=== PATIENT | female | born 1995 | race Caucasian/White ===

== ENCOUNTER 2019-09-07 13:48 | Emergency (ER) | payer OTHER ==
[~2019-09-07] VITALS: Ht 154.9 cm; Wt 129.3 kg
[2019-09-07] MEDS ORDERED: TESSALON PERLE100 MG PO (14:24)
[2019-09-07] MEDS ORDERED: AMOXICILLIN 50500 MG PO (14:24)
[2019-09-07 14:39] VITALS: BP 119/71
== END 2019-09-07 14:40 | disposition home or self-care (01) ==
LOC: M.ERS 13:48
DX: J06.9 Acute upper respiratory infection, unspecified (principal); Z90.49 Acquired absence of other specified parts of digestive tract

== ENCOUNTER 2019-09-24 13:59 | Emergency (ER) | payer OTHER ==
[~2019-09-24] VITALS: Ht 154.9 cm; Wt 127.0 kg
[~2019-09-24 13:59] MED LIST: AMOXICILLIN 50500 MG PO; TESSALON PERLE100 MG PO
[2019-09-24 14:41] LABS: URINE BILIRUBIN NEGATIVE (Negative); URINE BLOOD NEGATIVE (Negative); URINE CLARITY CLEAR; URINE COLOR YELLOW; URINE GLUCOSE-RANDOM NEGATIVE (Negative); URINE KETONES NEGATIVE (Negative); URINE LEUKOCYTES-REFLEX NEGATIVE (Negative); URINE NITRITE-REFLEX NEGATIVE (Negative); URINE PROTEIN NEGATIVE (Negative)
[2019-09-24 14:47] LABS: AMP/METHAMP Negative (Negative); BARBITURATES Negative (Negative); BENZODIAZEPINES Negative (Negative); COCAINE Negative (Negative); METHADONE Negative (Negative); OPIATES Negative (Negative); PCP Negative (Negative); THC Negative (Negative)
[2019-09-24] MEDS ORDERED: OMEPRAZOLE40 MG PO (15:05)
[2019-09-24] MEDS ORDERED: CARAFATE 1 GM TA1 GM PO (15:05)
[2019-09-24 15:07] LABS: HEMOGLOBIN 11.7 gm/dL (12.0-15.0); MCH 28.1 pg (26.0-34.0); MCHC 33.5 g/dL (28.0-37.0); MCV 83.9 fL (80.0-100.0); MPV 6.8 fl. (7.2-11.1); RBC 4.17 mil/uL (4.20-5.00); RDW-CV 14.6 % (10.5-14.5); WBC 8.1 thou/uL (4.0-11.0)
[2019-09-24 15:15] LABS: CALCIUM 8.7 mg/dL (8.5-10.1); CREATININE 0.8 mg/dL (0.6-1.3); POTASSIUM 3.7 mmol/L (3.5-5.1)
[2019-09-24 15:19] LABS: ALBUMIN 3.4 g/dL (3.4-5.0); TOTAL BILIRUBIN 0.2 mg/dL (<0.1-1.0); TOTAL PROTEIN 7.5 g/dL (6.4-8.2)
[2019-09-24 15:52] VITALS: BP 129/72
--- NOTE | 2019-09-25 12:11 | EKG ---
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: : 1995 Requested By: Indira Aguilera Order Number: [id number] MD: Matthew Rose Measurements Intervals [place] Rate: 84 P: 47 VA: 184 QRS: -12 QRSD: 112 T: 30 QT: 376 QTc: 445 Interpretive Statements Sinus rhythm Borderline intraventricular conduction delay Low voltage, precordial leads Baseline wander in lead(s) I,III,aVL No previous ECG available for comparison Electronically Signed On 09-25-2019 12:10:57 [employer] by Matthew Rose [email or web address] <ELECTRONICALLY SIGNED> By: Matthew Rose MD, [facility] 09/25/19 1210 1408 1408 Matthew Rose MD, [facility] /EPI
== END 2019-09-24 15:53 | disposition home or self-care (01) ==
LOC: M.ERS 13:59
PROVIDERS: Personal Emergency Response Attendant
DX: K21.9 Gastro-esophageal reflux disease without esophagitis (principal); R10.13 Epigastric pain; Z90.49 Acquired absence of other specified parts of digestive tract

== ENCOUNTER 2019-10-14 23:15 | Emergency (ER) | payer OTHER ==
[~2019-10-14] VITALS: Ht 154.9 cm; Wt 131.5 kg
[~2019-10-14 23:15] MED LIST changes: +CARAFATE 1 GM TA1 GM PO; +OMEPRAZOLE40 MG PO
[2019-10-15 00:45] VITALS: BP 106/59
== END 2019-10-15 00:45 | disposition home or self-care (01) ==
LOC: M.ERS 23:15
DX: O20.0 Threatened abortion (principal); Z90.49 Acquired absence of other specified parts of digestive tract; Z3A.01 Less than 8 weeks gestation of pregnancy

== ENCOUNTER 2019-10-26 16:47 | Emergency (ER) | payer MEDICAID ==
[~2019-10-26] VITALS: Ht 154.9 cm; Wt 131.5 kg
[2019-10-26] MEDS ORDERED: PRENATAL PO (16:57)
[2019-10-26 17:14] LABS: URINE BILIRUBIN NEGATIVE (Negative); URINE BLOOD TRACE (Negative); URINE CLARITY CLEAR; URINE COLOR YELLOW; URINE GLUCOSE-RANDOM NEGATIVE (Negative); URINE KETONES TRACE (Negative); URINE LEUKOCYTES-REFLEX TRACE (Negative); URINE NITRITE-REFLEX NEGATIVE (Negative); URINE PROTEIN NEGATIVE (Negative); URINE SPECIFIC GRAVITY 1.025 (1.005-1.030); URINE UROBILINOGEN 0.2 E.U./dl (0.2-1.0)
[2019-10-26 17:20] LABS: BACTERIA-REFLEX 1-9 Few /HPF (None Seen); CASTS None Seen /LPF (None Seen); CRYSTALS None Seen /LPF (None Seen); SQUAMOUS 4-10 Moderate /LPF (0-3); URINE RBC 3-10 Few /HPF (0-2); URINE WBC-REFLEX 6-15 Few /HPF (0-5)
[2019-10-26 17:21] LABS: MUCUS 4-6 Moderate strn/LPF (None Seen)
[2019-10-26] MEDS ORDERED: AMOXICILLIN 50500 MG PO (17:21)
[2019-10-26 17:34] VITALS: BP 148/74
== END 2019-10-26 17:35 | disposition home or self-care (01) ==
LOC: M.ERS 16:47
PROVIDERS: Nurse Practitioner Family
DX: O99.89 Other specified diseases and conditions complicating pregnancy, childbirth and the puerperium (principal); H66.92 Otitis media, unspecified, left ear; Z90.49 Acquired absence of other specified parts of digestive tract; Z3A.01 Less than 8 weeks gestation of pregnancy

== ENCOUNTER 2020-09-09 12:41 | Emergency (ER) | payer OTHER ==
[~2020-09-09] VITALS: Ht 154.9 cm; Wt 144.2 kg
[~2020-09-09 12:41] MED LIST changes: +PRENATAL PO
[2020-09-09] MEDS ORDERED: IBUPROFEN 800800 M1 PO (14:04)
[2020-09-09 14:23] VITALS: BP 130/75
== END 2020-09-09 14:23 | disposition home or self-care (01) ==
LOC: M.ERS 12:41
DX: S63.592A Other specified sprain of left wrist, initial encounter (principal); Z90.49 Acquired absence of other specified parts of digestive tract; W18.39XA Other fall on same level, initial encounter; Y93.89 Activity, other specified; Y92.89 Other specified places as the place of occurrence of the external cause; Y99.8 Other external cause status